=== PATIENT | female | born 1985 | race Caucasian/White ===

== ENCOUNTER 2022-02-04 23:04 | Observation (INO) | payer MEDICAID ==
[~2022-02-04] VITALS: Ht 149.9 cm; Wt 78.0 kg
[2022-02-04] MEDS ORDERED: PNV1TABL61 PO (23:23)
[2022-02-05] MEDS ORDERED: TERBUTALINE SULFATE 1MG/ML VIAL SUBCUT PRN
[2022-02-05] MEDS ORDERED: LACTATED RINGERS 1,000 ML IV SCH
[2022-02-05] MEDS ORDERED: BETAMETHASONE ACET/BETAMET 30 MG/5 ML VIAL IM SCH
[2022-02-05] MEDS ORDERED: LACTATED RINGERS 1,000 ML IV ONE
[2022-02-05 00:59] LABS: CLARITY URINE CLEAR (CLEAR); COLOR URINE YELLOW (YELLOW); KETONES URINE NEGATIVE (NEGATIVE); LEUKOCYTE ESTERASE URINE NEGATIVE (NEGATIVE); NITRITE URINE NEGATIVE (NEGATIVE); OCCULT BLOOD URINE NEGATIVE (NEGATIVE); PROTEIN URINE NEGATIVE (NEGATIVE); SPECIFIC GRAVITY URINE 1.011 (1.005-1.030); UROBILINOGEN URINE 0.2 E.U./dL (0.2-1.0)
== END 2022-02-05 02:25 | disposition home or self-care (01) ==
LOC: 8 EST LDRP 23:04
PROVIDERS: ADMIT Obstetrics & Gynecology; ATTEND Obstetrics & Gynecology
DX: O62.9 Abnormality of forces of labor, unspecified (principal); Z3A.29 29 weeks gestation of pregnancy
CPT/HCPCS: 59025; 76805; 76817; 76818; 81003; 96360; 96372; G0378; J3105; 96361; 99281

== ENCOUNTER 2022-02-17 23:32 | Observation (INO) | payer MEDICAID ==
[~2022-02-17] VITALS: Ht 157.5 cm; Wt 81.2 kg
[~2022-02-17 23:32] MED LIST: PNV1TABL61 PO
[2022-02-18 01:24] LABS: BASOPHILS % 0.3 % (0.0-2.0); EOSINOPHILS % 1.1 % (0.0-5.0); HEMATOCRIT. 36.8 % (36.0-48.0); HEMOGLOBIN. 12.2 g/dL (12.0-16.0); LYMPHOCYTES % 29.2 % (20.0-50.0); MEAN CORPUSCULAR VOLUME 81.6 fL (81.0-99.0); MEAN PLATELET VOLUME 10.1 fl (7.4-10.4); MONOCYTES % 4.4 % (2.0-8.0); PLATELET 222 x1000/uL (130-400); RED BLOOD CELL COUNT 4.51 mill/uL (4.2-5.4); RED CELL DISTRIBUTION WIDTH 15.6 % (11.6-14.6)
[2022-02-18 01:46] LABS: CLARITY URINE CLEAR (CLEAR); COLOR URINE YELLOW (YELLOW); KETONES URINE NEGATIVE (NEGATIVE); LEUKOCYTE ESTERASE URINE NEGATIVE (NEGATIVE); NITRITE URINE NEGATIVE (NEGATIVE); OCCULT BLOOD URINE 2+ (NEGATIVE); PROTEIN URINE NEGATIVE (NEGATIVE); SPECIFIC GRAVITY URINE 1.012 (1.005-1.030); UROBILINOGEN URINE 0.2 E.U./dL (0.2-1.0)
[2022-02-18] MEDS: ACETAMINOPHEN 500MG TABLET PO ONE ×2 (01:50→02:18)
[2022-02-18] MEDS ORDERED: BETAMETHASONE ACET/BETAMET 30 MG/5 ML VIAL IM ONE (03:45)
[2022-02-18] MEDS ORDERED: LACTATED RINGERS 1,000 ML IV SCH (03:45)
[2022-02-18] MEDS ORDERED: TERBUTALINE SULFATE 1MG/ML VIAL SUBCUT PRN (03:45)
== END 2022-02-18 07:00 | disposition home or self-care (01) ==
LOC: 8 EST LDRP 23:32
PROVIDERS: ADMIT Obstetrics & Gynecology; ATTEND Obstetrics & Gynecology
DX: O46.93 Antepartum hemorrhage, unspecified, third trimester (principal); O62.9 Abnormality of forces of labor, unspecified; O99.891 Other specified diseases and conditions complicating pregnancy; M54.9 Dorsalgia, unspecified; Z3A.31 31 weeks gestation of pregnancy
CPT/HCPCS: 36415; 59025; 76805; 76818; 81003; 85025; 96360; 96361; 96372; G0378; J3105; 99281

== ENCOUNTER 2022-04-01 15:22 | Observation (INO) | payer MEDICAID ==
[~2022-04-01] VITALS: Ht 147.3 cm; Wt 85.3 kg
== END 2022-04-01 17:30 | disposition home or self-care (01) ==
LOC: 8 EST LDRP 15:22
PROVIDERS: ADMIT Obstetrics & Gynecology; ATTEND Obstetrics & Gynecology
DX: O26.893 Other specified pregnancy related conditions, third trimester (principal); R03.0 Elevated blood-pressure reading, without diagnosis of hypertension; Z3A.37 37 weeks gestation of pregnancy
CPT/HCPCS: 59025; G0378; 99281

== ENCOUNTER 2022-04-04 22:03 | Observation (INO) | payer MEDICAID ==
[~2022-04-04] VITALS: Ht 152.4 cm; Wt 84.4 kg
== END 2022-04-05 01:03 | disposition home or self-care (01) ==
LOC: 8 EST LDRP 22:03
PROVIDERS: ADMIT Obstetrics & Gynecology; ATTEND Obstetrics & Gynecology
DX: O36.8130 Decreased fetal movements, third trimester, not applicable or unspecified (principal); Z3A.37 37 weeks gestation of pregnancy
CPT/HCPCS: 59025; 76815; 76818; G0378; 99281

== ENCOUNTER 2022-04-13 14:37 | Inpatient (IN) | payer MEDICAID ==
[~2022-04-13] VITALS: Ht 152.4 cm; Wt 84.4 kg
[2022-04-13] MEDS ORDERED: METHYLERGONOVINE MALEATE 0.2 MG/ML IM PRN (16:30)
[2022-04-13] MEDS ORDERED: CARBOPROST TROMETHAMINE 250 MCG/ML AMPUL IM PRN (16:30)
[2022-04-13] MEDS ORDERED: MISOPROSTOL 100MCG TABLET VG SCH (16:30)
[2022-04-13] MEDS ORDERED: BUTORPHANOL TARTRATE 2 MG/ML VIAL IV PRN ×2 (16:30→23:00)
[2022-04-13] MEDS ORDERED: NALOXONE HCL 0.4 MG/ML 1ML VIAL IM PRN (16:30)
[2022-04-13] MEDS ORDERED: LIDOCAINE HCL 1% 20ML VIAL (Pyxis) INJ INFIL SCH (16:30)
[2022-04-13] MEDS ORDERED: AMPICILLIN 2GM in NS 100ML 100 ML IV SCH (16:45)
[2022-04-13 17:34] LABS: BASOPHILS % 0.5 % (0.0-2.0); EOSINOPHILS % 0.8 % (0.0-5.0); HEMATOCRIT. 36.5 % (36.0-48.0); HEMOGLOBIN. 12.1 g/dL (12.0-16.0); MEAN CORPUSCULAR HEMOGLOBIN 27.8 pg (28.0-32.0); MEAN CORPUSCULAR VOLUME 83.9 fL (81.0-99.0); MONOCYTES % 5.1 % (2.0-8.0); NEUTROPHILS % 53.6 % (40.0-76.0); RED BLOOD CELL COUNT 4.34 mill/uL (4.2-5.4); RED CELL DISTRIBUTION WIDTH 17.4 % (11.6-14.6)
[2022-04-13] MEDS: LACTATED RINGERS 1,000 ML IV SCH ×2 (17:34→21:10)
[2022-04-13 17:42] LABS: CHLORIDE 107 mEq/L (98-107)
[2022-04-13 17:48] LABS: INR 0.9; PARTIAL THROMBOPLASTIN TIME 30.4 sec (23.4-31.0); PROTHROMBIN TIME 9.4 sec (9.6-11.0)
[2022-04-13 17:58] LABS: CLARITY URINE CLOUDY (CLEAR); COLOR URINE DARK YELLOW (YELLOW); KETONES URINE NEGATIVE (NEGATIVE); LEUKOCYTE ESTERASE URINE 2+ (NEGATIVE); NITRITE URINE NEGATIVE (NEGATIVE); OCCULT BLOOD URINE NEGATIVE (NEGATIVE); PROTEIN URINE TRACE (NEGATIVE); SPECIFIC GRAVITY URINE 1.021 (1.005-1.030)
[2022-04-13] MEDS ORDERED: CITRIC ACID/SODIUM CITRATE SOLN 30ML UDC PO NR (18:30)
[2022-04-13 18:32] LABS: *BARBITURATES SCREEN URINE NEGATIVE (NEGATIVE); *BENZODIAZEPINES SCREEN URINE NEGATIVE (NEGATIVE); *COCAINE SCREEN URINE NEGATIVE (NEGATIVE); CANNABINOID URINE SCREEN NEGATIVE (NEGATIVE); METHADONE URINE SCREEN NEGATIVE (NEGATIVE); OPIATES URINE SCREEN NEGATIVE (NEGATIVE)
[2022-04-13 18:34] LABS: *AMPHETAMINES SCREEN URINE NEGATIVE (NEGATIVE); PHENCYCLIDINE URINE SCREEN NEGATIVE (NEGATIVE)
[2022-04-13 18:46] LABS: PLATELET 138 x1000/uL (130-400)
[2022-04-13] MEDS ORDERED: MORPHINE SULFATE/PF 1MG/ML 10ML AMP ONE (18:51)
[2022-04-13] MEDS ORDERED: ONDANSETRON HCL 4MG/2ML INJ ONE (18:51)
[2022-04-13] MEDS ORDERED: OXYTOCIN 10 UNITS/ML 1ML ONE (18:51)
[2022-04-13] MEDS ORDERED: CEFAZOLIN SODIUM 1000MG/VIAL ONE (18:51)
[2022-04-13] MEDS ORDERED: EPHEDRINE SULFATE 50MG/ML VIAL ONE (18:51)
[2022-04-13] MEDS ORDERED: DIPHENHYDRAMINE 50MG/ML VIAL ONE (18:51)
[2022-04-13] MEDS ORDERED: FENTANYL CITRATE/PF 50MCG/ML 2ML VIAL ONE (18:51)
[2022-04-13 22:34] LABS: HEPATITIS B SURFACE ANTIGEN NEGATIVE
[2022-04-13] MEDS ORDERED: KETOROLAC 60MG/2ML VIAL IM ONE (22:58)
[2022-04-13] MEDS ORDERED: KETOROLAC 30MG/ML VIAL IV SCH (23:00)
[2022-04-13] MEDS ORDERED: AMPICILLIN 1,000 MG in SODIUM CHLORIDE 0.9% 50 ML IV SCH (23:00)
[2022-04-13] MEDS ORDERED: DIPHENHYDRAMINE 50MG/ML VIAL IV PRN (23:00)
[2022-04-13] MEDS ORDERED: NALOXONE HCL 0.4 MG/ML 1ML VIAL IV PRN (23:00)
[2022-04-13] MEDS ORDERED: METOCLOPRAMIDE HCL 10MG/2ML VIAL ONE (23:08)
[2022-04-13] MEDS ORDERED: BISACODYL 10MG SUPP PR PRN (23:45)
[2022-04-13] MEDS ORDERED: IBUPROFEN 400MG TABLET PO PRN (23:45)
[2022-04-13] MEDS ORDERED: DIPHENHYDRAMINE 25MG CAPSULE PO PRN (23:45)
[2022-04-13] MEDS ORDERED: HYDROMORPHONE HCL/PF 2MG/ML CPJ IM PRN (23:45)
[2022-04-14] MEDS: OXYTOCIN 30 UNITS/500ML NS PMX 500 ML IV SCH ×2 (00:57→05:06)
[2022-04-14 01:35] VITALS: BP 116/60
[2022-04-14 04:00] VITALS: BP 114/71
[2022-04-14 07:50] LABS: BASOPHILS % 0.3 % (0.0-2.0); EOSINOPHILS % 0.4 % (0.0-5.0); HEMATOCRIT. 35.4 % (36.0-48.0); HEMOGLOBIN. 11.7 g/dL (12.0-16.0); LYMPHOCYTES % 29.3 % (20.0-50.0); MEAN CORPUSCULAR HEMOGLOBIN 27.4 pg (28.0-32.0); MEAN CORPUSCULAR VOLUME 83.2 fL (81.0-99.0); MEAN PLATELET VOLUME 11.7 fl (7.4-10.4); MONOCYTES % 3.6 % (2.0-8.0); NEUTROPHILS % 66.4 % (40.0-76.0); PLATELET 129 x1000/uL (130-400); RED BLOOD CELL COUNT 4.26 mill/uL (4.2-5.4); RED CELL DISTRIBUTION WIDTH 17.2 % (11.6-14.6)
[2022-04-14 08:00] VITALS: BP 114/65
[2022-04-14] MEDS: FERROUS SULFATE 325MG TABLET PO SCH ×2 (08:37→15:18)
[2022-04-14] MEDS: PRENATAL VIT/FE FUMARATE/FA TABLET PO SCH (08:37)
[2022-04-14] MEDS: IBUPROFEN 800MG TABLET PO PRN ×2 (15:19→20:42)
[2022-04-14 16:00] VITALS: BP 116/66
[2022-04-14 19:00] VITALS: BP 113/55
[2022-04-15 00:01] VITALS: BP 103/50
[2022-04-15 04:00] VITALS: BP 106/50
[2022-04-15] MEDS: IBUPROFEN 800MG TABLET PO PRN ×3 (05:10→21:33)
[2022-04-15 08:00] VITALS: BP 108/64
[2022-04-15] MEDS: FERROUS SULFATE 325MG TABLET PO SCH ×2 (12:30→17:15)
[2022-04-15] MEDS: PRENATAL VIT/FE FUMARATE/FA TABLET PO SCH (12:30)
[2022-04-15 15:27] VITALS: BP 107/47
[2022-04-15 21:46] VITALS: BP 110/52
[2022-04-16 01:07] VITALS: BP 107/60
[2022-04-16] MEDS: IBUPROFEN 800MG TABLET PO PRN ×3 (05:06→08:51)
[2022-04-16 05:28] VITALS: BP 124/72
[2022-04-16 08:00] VITALS: BP 119/59
[2022-04-16 08:47] VITALS: BP 124/72
[2022-04-16] MEDS: PRENATAL VIT/FE FUMARATE/FA TABLET PO SCH (08:47)
[2022-04-16] MEDS: FERROUS SULFATE 325MG TABLET PO SCH (08:47)
== END 2022-04-16 14:45 | disposition home or self-care (01) | DRG 540 ==
LOC: 8 EST LDRP 14:37 → OBSVTOIN 14:38 → 8EST 04-14 05:49
PROVIDERS: ADMIT Obstetrics & Gynecology; ATTEND Obstetrics & Gynecology
PROC: 10D00Z1 Extraction of Products of Conception, Low, Open Approach (ICD-10-PCS; principal; 2022-04-13)
DX: O36.63X0 Maternal care for excessive fetal growth, third trimester, not applicable or unspecified (principal); K83.1 Obstruction of bile duct; O26.62 Liver and biliary tract disorders in childbirth; D62 Acute posthemorrhagic anemia; O99.824 Streptococcus B carrier state complicating childbirth; O99.52 Diseases of the respiratory system complicating childbirth; Z3A.39 39 weeks gestation of pregnancy; Z20.822 Contact with and (suspected) exposure to COVID-19; J45.909 Unspecified asthma, uncomplicated; O90.81 Anemia of the puerperium; Z37.0 Single live birth
CPT/HCPCS: 36415; 76805; 76818; 80053; 80305; 81003; 85025; 86592; 86703; 86762; 86850; 86900; 86920; 87340; 87426; 88307; 99281; G0378; J0290; J0690; J1200; J1885; J2274; J2405; J2765; J3010; J3490; A4315; J2590